=== PATIENT | female | born 1985 | race Hispanic/Latino ===

== ENCOUNTER 2020-05-06 14:10 | Emergency (ER) | payer MEDICAID, OTHER ==
[2020-05-06] MEDS ORDERED: KETOROLAC TROMETHAMINE 30MG/ML ONE (14:44)
== END 2020-05-06 16:11 | disposition home or self-care (01) ==
LOC: EDH 14:10
DX: S92.511A Displaced fracture of proximal phalanx of right lesser toe(s), initial encounter for closed fracture (principal); S90.31XA Contusion of right foot, initial encounter; W23.0XXA Caught, crushed, jammed, or pinched between moving objects, initial encounter; Y93.89 Activity, other specified; Y92.214 College as the place of occurrence of the external cause; Y99.8 Other external cause status
CPT/HCPCS: 73630; 96372; 99283; J1885

== ENCOUNTER 2024-12-04 08:46 | Emergency (ER) | payer BC ==
[~2024-12-04] VITALS: Ht 157.5 cm; Wt 77.1 kg
--- NOTE | 2024-12-04 09:13 | ERN ---
General Chief Complaint: Chest Pain Stated Complaint: CHEST PAIN Time Seen by MD: 10:14 Source: patient History of Present Illness Initial Comments This patient is a 39-year-old female who presented with complaint of sharp chest pain. Patient stated that pain began suddenly and she also felt heaviness in the left arm. She denied any episode of vomiting but confirms she is a bit nauseous. Character of pain was sharp. She stated that she had similar pain 3 weeks ago which disappeared. No change in severity was noted with inspiration. As per patient, she often has anxiety attacks during which she vomits.Also compl ained of off and on pain in right lower extremity Timing/Duration: 4-6 hours Allergies: Coded Allergies: No Known Drug Allergies (Unverified Allergy, Unknown, 05/06/20) Past Medical History Past Medical History: No Pertinent History Past Surgical History: BTL Female( History) LMP: Nov 22, 2024 Constitutional: (-) chills, (-) diaphoresis, (-) fever, (-) malaise, (-) weakness, (-) other documentation EENTM: (-) eye pain, (-) blurred vision, (-) tearing, (-) double vision, (-) ear pain, (-) ear discharge, (-) nose pain, (-) nose congestion, (-) throat pain, (-) Throat swelling, (-) mouth pain, (-) tooth pain, (-) mouth swelling, (-) other documentation Respiratory: (-) cough, (-) orthopnea, (-) short of breath, (-) stridor, (-) wheezing, (-) other documentation Cardiovascular: (+) chest pain; (-) edema, (-) palpitations, (-) syncope, (-) dyspnea on exertion, (-) other documentation Gastrointestinal/Abdominal: (-) nausea, (-) vomiting, (-) diarrhea, (-) abdominal pain, (-) abdominal distention, (-) constipation, (-) rectal bleeding, (-) dark stool/melena, (-) other documentation Genitourinary: (-) vaginal discharge, (-) vaginal bleeding, (-) dysuria, (-) frequency, (-) hematuria, (-) pain, (-) other documentation Musculoskeletal: (-) Neck pain, (-) back pain, (-) Flank Pain, (-) joint pain, (-) joint swelling, (-) muscle pain, (-) muscle stiffness, (-) gout, (-) other documentation Skin: (-) laceration, (-) contusion, (-) abrasion, (-) abscess, (-) rash, (-) change in color, (-) change in hair, (-) change in nails, (-) diaphoresis, (-) dryness, (-) other documentation Neuro: (-) altered mental status, (-) headache, (-) syncope, (-) paralysis, (-) numbness, (-) seizure, (-) pre-existing deficit, (-) tremors, (-) weakness, (-) dizziness, (-) slurred speech, (-) vertigo, (-) other documentation Physical Exam General Appearance: (+) apparent distress Orientation: (+) alert, (+) oriented x 3 Ear, Nose, Throat: (+) hearing grossly normal, (+) moist mucous membraine Neck: (+) normal inspection, (+) supple, (+) full range of motion Respiratory: (+) lungs clear, (+) well ventilated Heart: (+) regular Vascular: (+) no edema, (+) normal peripheral pulse Gastrointestinal: (+) soft, (+) non-tender Extremities: (+) normal range of motion, (+) non-tender, (+) normal inspection, (+) no calf tenderness Neurologic/Psychiatric: (+) normal speech, (+) no motor defecits, (+) no sensory deficits Skin: (+) normal color Results Laboratory and Microbiology Lab and Micro Result Laboratory Tests Test 12/04/24 09:40 12/04/24 10:29 White Blood Count 9.5 K/uL (4.8-10.8) Red Blood Count 4.67 MIL/uL (4.00-5.50) Hemoglobin 13.0 g/dL (12.0-16.0) Hematocrit 38.5 % (36-48) Mean Corpuscular Volume 82.4 fL (79-99) Mean Corpuscular Hemoglobin 27.8 pg (27.0-33.0) Mean Corpuscular Hemoglobin Concent 33.8 g/dL (32.0-36.0) Red Cell Distribution Width 12.1 % (11.0-15.5) Platelet Count 328 K/uL (130-400) Mean Platelet Volume 9.3 fL (7.5-10.5) Nucleated Red Blood Cells 0.0 % (0.0-0.19) D-Dimer Quantitative (PE/DVT) 220 ng/mL (0-500) Urine Color YELLOW (YELLOW) Urine Appearance CLOUDY (CLEAR) H Urine pH 5.5 (5.0-8.0) Urine Specific [place] 1.026 (1.001-1.031) Urine Protein 20 mg/dL (NEGATIVE) H Urine Glucose (UA) NEGATIVE mg/dL (NEGATIVE) Urine Ketones 5 mg/dL (NEGATIVE) H Urine Occult Blood +- (TRACE) (NEGATIVE) H Urine Nitrate NEGATIVE (NEGATIVE) Urine Bilirubin NEGATIVE mg/dL (NEGATIVE) Urine Urobilinogen 0.2 mg/dL (0.2-1.0) Urine Leukocyte Esterase NEGATIVE Jenny/uL Urine RBC 2-5 /HPF (0-1) H Urine WBC 2-5 /HPF (0-1) H Urine Squamous Epithelial Cells MOD /HPF (0-2) Urine Bacteria Few /HPF (None Seen) Urine HCG, Qualitative NEGATIVE (NEGATIVE) Sodium Level 139 mmol/L (136-145) Potassium Level 4.2 mmol/L (3.5-5.1) Chloride Level 102 mmol/L (101-111) Carbon Dioxide Level 28 mmol/L (21-32) Blood Urea Nitrogen 17 mg/dL (7-18) Creatinine 0.6 mg/dL (0.5-1.0) Glomerular Filtration Rate Calc 118 mL/min (>90) Random Glucose 107 mg/dL (70-105) H Total Calcium 9.5 mg/dL (8.5-10.1) Troponin I High Sensitivity < 4 ng/L (4-50) L < 4 ng/L (4-50) L EKG/XRAY/US/CT/MRI Ultrasound Comment PATIENT: LENNIE LEE MR#: [id number] : 1985 SEX: F AGE: 39 LOCATION: [facility] ORDER [id number] STATUS: REG REPORT#: [id number] SERVICE 2 REASON: Complains of right lower leg pain. Now presenting with chest pain. ORDERING PHYSICIAN: BREEZY SKY MD PROCEDURE: VENOUS UNI - US VENOUS DOPPLER UNILATERAL EXAM: US for Deep Venous Thrombosis, right Lower Extremity. CLINICAL HISTORY: Leg Pain and Swelling TECHNIQUE: Real-time ultrasound scan of the veins of the right lower extremity with color Doppler flow, spectral waveform analysis and compression. COMPARISON: None provided. FINDINGS: DEEP VEINS: The common femoral, superficial femoral, and popliteal veins are echolucent and compressible. There is normal color Doppler flow throughout. The visualized calf veins appear patent. SOFT TISSUES: No popliteal fossa cyst or other abnormalities. IMPRESSION: No deep venous thrombosis evident on right lower extremity examination. /[place] DICTATED BY: JANNETTE YEN Jr., MD DATE: 12/04/241044 ELECTRONICALLY SIGNED BY: JANNETTE YEN Jr., MD DATE: 12/04/24 1045 [facility] This patient is a 39-year-old female who presented with complaint of sharp chest pain. Patient stated that pain began suddenly and she also felt heaviness in the left arm. She denied any episode of vomiting but confirms she is a bit nauseous. Character of pain was sharp. She stated that she had similar pain 3 weeks ago which disappeared. No change in severity was noted with inspiration. As per patient, she often has anxiety attacks during which she vomits. Also complained of off and on pain in right lower extremity Cardiac workup was done and repeat troponins were taken which came back negative. D-dimers and Doppler ultrasound of right lower extremity were negative. Urinalysis and BMP were unremarkable. Chest x-ray also revealed no acute cardiopulmonary pathology. ED Course Orders Procedure Category Date Status Time Cbc Without LAB 12/04/24 Complete Differential 09:03 Basic Metabolic Panel LAB 12/04/24 Complete 09:03 Troponin I High LAB 12/04/24 Complete Sensitivity 09:03 D-Dimer LAB 12/04/24 Complete 09:03 Alprazolam 0.25mg PHA 12/04/24 Complete (Xanax 0.25mg) 09:30 12 Lead Ekg Tracing- EKG 12/04/24 Resulted Technical 09:11 Us Venous Doppler US 12/04/24 Resulted Unilateral 09:03 Urinalysis Profile LAB 12/04/24 Complete 09:36 ,Urine Test LAB 12/04/24 Complete 09:36 Troponin I High LAB 12/04/24 Complete Sensitivity 10:21 Chest 1vw RAD 12/04/24 Resulted 10:21 Alprazolam 0.25mg PHA 12/04/24 Complete (Xanax 0.25mg) 12:30 Current Medications Medications (Trade) Dose Ordered Sig/Debra Route PRN Reason Start Time Stop Time Status Last Admin Dose Admin Alprazolam (XANax 0.25MG) 0.25 mg ONCE ONCE PO 12/04/24 09:30 12/04/24 09:31 DC Alprazolam (XANax 0.25MG) 0.25 mg ONCE ONCE PO 12/04/24 12:30 12/04/24 12:31 DC 12/04/24 12:20 Vital Signs Date Time Temp Pulse Resp B/P (MAP) Pulse Ox O2 Delivery O2 Flow Rate FiO2 12/04/24 12:42 98.2 74 19 127/89 99 Room Air* 0 12/04/24 11:14 98.4 80 19 136/92 99 Room Air* 0 21 12/04/24 08:48 98.2 86 16 137/84 98 Room Air 0 DX & DISP Disposition: Discharge Departure Impression: Primary Impression: Non-cardiac chest pain Condition: Stable Additional Instructions: We performed your cardiac workup including troponins, EKG, CBC, BMP, D-dimers, chest x-ray which were unremarkable. Your chest pain is most likely noncardiac, related to anxiety. Follow up with your primary care physician in 2-3 days. Referrals: SELF,REFERRAL (PCP) Time of Disposition: 12:13 I have examined patient, & reviewed all documents, & agreed W/ the Diagnosis, and Plan ATTESTATION BY PHYSICIAN I have seen and examined the patient. I reviewed the documentation, medical decision making, and treatment plan as noted by the resident provider above. I agree with the findings and plan of care. TIFFANIE ZAMORA DO I performed a substantive portion of the visit. I have reviewed and personally made and approve the management plan that is documented in the notes by myself with MICK/resident. I acknowledged full responsibility for the patient's management plan. 39 female low risk chest pain normal EKG normal troponins. Low heart score, negative D-dimer. We will DC. BREEZY SKY MD Dec 04, 2024 09:13 TIFFANIE ZAMORA DO Dec 04, 2024 15:18
--- NOTE | 2024-12-04 09:46 | HMCIMG ---
EXAM: US for Deep Venous Thrombosis, right Lower Extremity. CLINICAL HISTORY: Leg Pain and Swelling TECHNIQUE: Real-time ultrasound scan of the veins of the right lower extremity with color Doppler flow, spectral waveform analysis and compression. COMPARISON: None provided. FINDINGS: DEEP VEINS: The common femoral, superficial femoral, and popliteal veins are echolucent and compressible. There is normal color Doppler flow throughout. The visualized calf veins appear patent. SOFT TISSUES: No popliteal fossa cyst or other abnormalities. IMPRESSION: No deep venous thrombosis evident on right lower extremity examination. /[place]
[2024-12-04 09:49] LABS: NUCLEATED RED BLOOD CELLS 0.0 % (0.0-0.19); PLATELET COUNT (AUTO) 328.0 K/uL (130-400); RED BLOOD CELL COUNT(AUTO) 4.67 MIL/uL (4.00-5.50); RED CELL DISTRIBUTION WIDTH 12.1 % (11.0-15.5); WHITE BLOOD COUNT (AUTO) 9.5 K/uL (4.8-10.8)
[2024-12-04 10:04] LABS: CREATININE 0.6 mg/dL (0.5-1.0); GLOMERULAR FILTR. RATE CALC 118.0 mL/min (>90); GLUCOSE,RANDOM 107.0 mg/dL (70-105); SODIUM SERUM 139.0 mmol/L (136-145); UREA NITROGEN, BLOOD 17.0 mg/dL (7-18)
[2024-12-04 10:14] LABS: APPEARANCE,URINE CLOUDY (CLEAR); GLUCOSE, URINE (UA) NEGATIVE (NEGATIVE); LEUKOCYTE ESTERASE ,URINE NEGATIVE Leu/uL (NEGATIVE); NITRATE,URINE NEGATIVE (NEGATIVE); OCCULT BLOOD,URINE +- (TRACE) (NEGATIVE)
--- NOTE | 2024-12-04 10:18 | EKG ---
[facility] Test Date: 2024-12-04 Test Time: 08:36:08 Pat Name: LENNIE LEE Department: [facility] Room: Gender: F [employer]: [id number] : 1985 Requested By: TIFFANIE ZAMORA Order Number: [id number] Reading MD: Claudia Paulino Measurements Intervals Etters Rate: 80 P: 58 FL: 162 QRS: 14 QRSD: 81 T: 17 QT: 362 QTc: 420 Interpretive Statements Sinus rhythm No previous ECG available for comparison Electronically Signed On 12-04-2024 12:31:06 CDT by Claudia Paulino Please click the below link to view image of tracing.
[2024-12-04 10:23] LABS: ADD UA MICROSCOPIC YES
[2024-12-04 10:31] LABS: HCG,QUALITATIVE URINE NEGATIVE (NEGATIVE)
[2024-12-04 10:39] LABS: SQUAMOUS EPITHELIAL CELL,UR MOD /HPF (0-2)
[2024-12-04 12:42] VITALS: BP 127/89; PULSE 74; RESP 19; TEMP 98.2; O2SAT 99
--- NOTE | 2024-12-04 12:55 | HMCIMG ---
EXAM: CR Chest, 1 View. CLINICAL HISTORY: CHEST PAIN COMPARISON: None provided. FINDINGS: LUNGS: The lungs show no infiltrate or other acute finding. PLEURAL SPACES: No pleural effusion or pneumothorax. MEDIASTINUM: Cardiac size and mediastinal contours within normal limits. BONES: No aggressive appearing osseous lesion seen. IMPRESSION: No acute cardiopulmonary pathology is evident. /[place]
== END 2024-12-04 12:43 | disposition home or self-care (01) ==
LOC: EDH 08:46
DX: R07.89 Other chest pain (principal); M79.661 Pain in right lower leg; Z98.51 Tubal ligation status
CPT/HCPCS: 36415; 71045; 80048; 81001; 81025; 84484; 85027; 85378; 93005; 93971; 99284